=== PATIENT | female | born 1965 | race Caucasian/White ===

== ENCOUNTER 2021-09-12 13:14 | Outpatient (CLI) | payer OTHER, SELFPAY ==
--- NOTE | 2021-09-12 13:23 | CT_ITS ---
WS: [id number] LDCT LUNG CANCER SCREENING HISTORY: HX OF TOBACCO USE TECHNIQUE: Axial imaging performed from the apices to 1 cm below the costophrenic angles. Coronal and sagittal reformats are submitted with axial MIP series. All CT scans at [facility] use at least one of these dose optimization techniques: automated exposure control; mA and/or kV adjustment per patient size (includes targeted exams where dose is matched to clinical indication); or iterativ e reconstruction. DLP: 54.19 mGy.cm DIvol: 1.58 mGy COMPARISON: None available. Diagnostic quality: Satisfactory Lung Nodules: Biapical pleural thickening is nearly symmetric. Slightly greater nodularity at the RIG HT apex. Largest nodule measures 14 mm along the posterior lateral upper lobe. Benign granuloma LEFT upper lobe. Additional subsolid 6 mm nodule anterior RIGHT upper lobe, image 89 of series 3. Lungs: Hyperexpanded lungs. Heart: Normal size. No effusion. Other findings: Mild atherosclerosis aorta. Normal size pulmonary artery. No adenopathy identified on this unenhanced study. Bilateral breast implants. Small hiatal hernia. Mild increase in thoracic kyp hosis. CT/CT lung screening [id number] IMPRESSION: LUNG-RADS: 4A-Probably Suspicious FOLLOW UP: 3 Month LDCT OTHER FINDINGS (S MODIFIER): None. CT follow-up recommended to reevaluate the biapical pleural thickening and nodu larity.
== END 2021-09-12 13:15 | disposition home or self-care (01) ==
LOC: RAD 13:21
PROVIDERS: PCP Nurse Practitioner Family; Visit Provider Nurse Practitioner Family
DX: Z12.2 Encounter for screening for malignant neoplasm of respiratory organs (principal); Z87.891 Personal history of nicotine dependence
CPT/HCPCS: 71271

== ENCOUNTER 2021-12-11 10:09 | Day surgery (SDC) | payer OTHER, SELFPAY ==
[2021-12-11 07:03] VITALS: BMI 24.7
--- NOTE | 2021-12-11 11:15 | P.ANESASSM_ITS ---
Pre-Anesthetic Assessment Height/Weight: Height 1.68 m Weight 69.4 kg Preop Diagnosis: Abdominal pain Operation Date: 12/11/21 11:30 Proposed Procedures p EGD 96670/r10.12(Not Applicable) - Yury South MD Familial anesthetic complications: None Was Beta Colten taken within 24 hours: N/A Was Clonidine taken within 24 hours: N/A Last intake: Intake Last Liquid Date 12/10/21 Last Liquid Time 20:00 Last Solid Date 12/10/21 Last Solid Time 20:00 Social No alcohol and No tobacco Exam alert, oriented x 3, clear to auscultation bilaterally and regular rate & rhythm Airway Submandibular: within normal limits Cervical ROM: within normal limits Mallampati: Class II Dentition: full Pulmonary None reported CV/HEM None reported METS > 4 None reported Hepatic None reported GI Abdominal pain with reflux of fluid Prior dx of hiatal hernia Reports difficulty with swallowing with microaspiration occassionally Denies bolus sensation Denies hx of food bolus Metabolic None reported Musc/skel None reported Neuropsych Neuropathy (Hx are carpal tunnel) Anesthetic Plan ASA status: 2 Anesthesia: Anesthesia Evaluation and General Other: I discussed with the patient risks, goals, and benefits of MAC and general anesthesia. We discussed spectrum of MAC anesthesia including conversion to general as well as possibility of recall of intraoperative stimuli including discomfort/pain. Patient agrees to proceed with MAC. Risk of > 500 ml blood loss (7ml/kg in children): No Medications/Allergies Home Medications Medication Instructions Recorded Confirmed Last Taken Type pantoprazole 40 mg tablet,delayed 40 mg PO BID 60 Days #120 tab 12/09/21 12/11/21 12/10/21 Rx release (Protonix) Allergies Allergy/AdvReac Type Severity Reaction Status Date / Time latex Allergy ALGY-Rash Verified 12/09/21 12:52 [facility] Anesthesia Surgical History History of bilateral carpal tunnel release History of breast augmentation History of History of colonoscopy History of eye surgery S/P appendectomy Social History Smoking and tobacco status: never smoked Data Anesthesia Cardiac Studies: Holter Monitor 07/31/21
[2021-12-11] MEDS: sodium chloride 0.9% 1,000 ML 30 ML IV (11:20)
[2021-12-11 11:21] VITALS: BP 116/75; PULSE 68; RESP 17; TEMP 36.3; O2SAT 99
--- NOTE | 2021-12-11 11:55 | W.PM.OPSFHP ---
Same Day Surgery H&P Indication for Procedure/HPI DATE OF PROCEDURE: December 11, 2021 CHIEF COMPLAINT/INDICATIONFOR SURGICAL PROCEDURE: Left upper quadrant pain PREOP DIAGNOSIS: Abdominal pain PLANNED PROCEDURE: Operation Date: 12/11/21 11:30 Proposed Procedures p EGD 41778/r10.12(Not Applicable) - Yury South MD Medications/Allergies* Allergies/Adverse Reactions Allergy/AdvReac Type Severity Reaction Status Date / Time latex Allergy ALGY-Rash Verified 12/09/21 12:52 Current Medications: Generic Name Dose Route Start Last Admin Trade Name Freq PRN Reason Stop Dose Admin Sodium Chloride 1,000 mls @ 30 mls/hr 12/11/21 11:18 12/11/21 11:20 Sodium Chloride 0.9% IV 12/12/21 11:17 30 mls/hr .Q24H SWEETIE Administration Pertinent History/Comorbid Conditions* Surgical History (Updated 12/09/21 @ 13:04 by Yury South MD) History of bilateral carpal tunnel release History of breast augmentation History of History of colonoscopy History of eye surgery S/P appendectomy Social History Smoking and tobacco status: never smoked Pertinent Exam Findings alert, oriented x 3 and regular rate & rhythm Recommendations Surgery/Procedure today Coding Level of Care Code Acute 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
[2021-12-11 12:00] VITALS: BP 112/67; PULSE 94; RESP 12; TEMP 36.1; O2SAT 95
--- NOTE | 2021-12-11 12:02 | ANE.PACU2 ---
Documented by User: Ricardo Rbuin CRNA 12/11/21 12:03 Inpatient post-anesthesia follow up: Airway intact: Yes Vital signs: Temperature 97 F Pulse Rate 94 Respiratory Rate 12 Blood Pressure 112/67 Pulse Oximetry 95 Oxygen Delivery Me thod Room Air Oxygen Flow Rate Fraction of Inspir ed Oxygen Hydration adequate: Yes Nausea and vomiting: No Pain level: 1 Mental status: Baseline
[2021-12-11 12:12] VITALS: BP 131/78; PULSE 72; RESP 16; O2SAT 98
== END 2021-12-11 12:20 | disposition home or self-care (01) ==
PROVIDERS: PCP Nurse Practitioner Family; Visit Provider Surgery
PROC: 0DJ08ZZ Inspection of Upper Intestinal Tract, Via Natural or Artificial Opening Endoscopic (ICD-10-PCS; CPT 43235; principal; 2021-12-11 11:30)
DX: R10.12 Left upper quadrant pain (principal); K44.9 Diaphragmatic hernia without obstruction or gangrene; K29.70 Gastritis, unspecified, without bleeding
CPT/HCPCS: 43239; 88305; J2704; J7030

== ENCOUNTER 2022-10-10 08:21 | Outpatient (CLI) | payer OTHER, SELFPAY ==
--- NOTE | 2022-10-10 08:42 | CT_ITS ---
WS: [id number] LDCT LUNG CANCER SCREENING HISTORY: HX OF TOBACCO TECHNIQUE: Axial imaging performed from the apices to 1 cm below the costophrenic angles. Coronal and sagittal reformats are submitted with axial MIP series. All CT scans at [facility] use at least one of these dose optimization techniques: automated exposure control; mA and/or kV adjustment per patient size (includes targeted exams where dose is matched to clinical indication); or iterativ e reconstruction. DLP: 85.58 mGy.cm DIvol: Mean CTDIvol: 1.60 (mGy) COMPARISON: 09/12/2021 Diagnostic quality: Satisfactory Lung Nodules: Previously described pleural thickening and fibrosis and nodularity at the lung apices is unchanged. No progression. No new pulmonary nodule or mass. No endobronchial lesions. Lungs: Chronic emphysema. Heart: Normal size heart. No pericardial effusion. Minimal coronary artery calcified plaque. Other findings: Bilateral breast implants. Mild atherosclerosis thoracic aorta, no aneurysm. Normal s ize pulmonary artery. No adrenal mass. CT/CT lung screening [id number] IMPRESSION: LUNG-RADS: 2-Benign Appearance or Behavior FOLLOW UP: 12 Month: Continue annual screening with LDCT OTHER FINDINGS (S MODIFIER): None.
== END 2022-10-10 08:22 | disposition home or self-care (01) ==
LOC: RAD 08:23
PROVIDERS: PCP Nurse Practitioner Family; Visit Provider Nurse Practitioner Family
DX: Z12.2 Encounter for screening for malignant neoplasm of respiratory organs (principal); Z87.891 Personal history of nicotine dependence
CPT/HCPCS: 71271

== ENCOUNTER 2022-12-23 06:58 | Outpatient (CLI) | payer OTHER, SELFPAY ==
[2022-12-23 07:25] VITALS: PULSE 73; RESP 18; O2SAT 95
[2022-12-23 07:30] VITALS: PULSE 74
[2022-12-23 07:53] VITALS: BP 136/88; BP 146/93
== END 2022-12-23 06:59 | disposition home or self-care (01) ==
PROVIDERS: PCP Family Medicine; Visit Provider Family Medicine
DX: J44.9 Chronic obstructive pulmonary disease, unspecified (principal)
CPT/HCPCS: 94060; 94618; 94726; 94729

== ENCOUNTER → 2023-02-02 12:39 | Outpatient (BNVA) | payer OTHER, SELFPAY | PROVIDERS: PCP Family Medicine; Visit Provider Internal Medicine Pulmonary Disease | DX: J44.9 Chronic obstructive pulmonary disease, unspecified (principal); R40.0 Somnolence | CPT/HCPCS: 36415; 80053; 82785; 85025; 86003 ==

== ENCOUNTER 2023-02-11 13:30 | Outpatient (CLI) | payer OTHER, SELFPAY | END 2023-02-11 13:31 | disposition home or self-care (01) | LOC: SLEEP 02-12 09:31 | PROVIDERS: PCP Family Medicine; Visit Provider Internal Medicine Pulmonary Disease | DX: R40.0 Somnolence (principal) | CPT/HCPCS: 94762 ==

== ENCOUNTER → 2023-03-06 14:35 | Outpatient (BNVA) | payer OTHER, SELFPAY | PROVIDERS: PCP Family Medicine; Visit Provider Family Medicine | DX: R14.0 Abdominal distension (gaseous) (principal) | CPT/HCPCS: 86003; 86008 ==

== ENCOUNTER 2023-03-12 16:00 | Outpatient (CLI) | payer OTHER, SELFPAY | END 2023-03-12 16:01 | disposition home or self-care (01) | LOC: SLEEP 03-16 12:51 | PROVIDERS: PCP Family Medicine; Visit Provider Internal Medicine Pulmonary Disease | DX: G47.33 Obstructive sleep apnea (adult) (pediatric) (principal); R06.09 Other forms of dyspnea; J44.9 Chronic obstructive pulmonary disease, unspecified; Z87.891 Personal history of nicotine dependence | CPT/HCPCS: G0399 ==

== ENCOUNTER 2023-07-28 08:25 | Oncology outpatient (recurring) (ONCR) | payer OTHER, SELFPAY ==
[2023-07-28 10:15] VITALS: BP 125/76; PULSE 77; RESP 18; TEMP 36.6; O2SAT 96
[2023-07-28] MEDS: Benralizumab *no charge* 30 mg/ml syringe SUBCUT (16:56)
--- NOTE | 2023-07-28 16:59 | NUR.SHIFT ---
Patient came in for the instructions and injecting of the first Benralizumab . the injection and medication was instructed of the technique of the drug,frequency,site and how to dispose of needles. Instructions to call [facility] pharmacy for the next refills. She tolerated it well with no signs or symptoms post injections//mm
== END 2023-08-23 23:59 | disposition home or self-care (01) ==
LOC: ONCMED 08:25
PROVIDERS: PCP Family Medicine; Visit Provider Internal Medicine Pulmonary Disease
DX: J45.909 Unspecified asthma, uncomplicated (principal)
CPT/HCPCS: 96372

== ENCOUNTER 2023-10-23 07:48 | Outpatient (CLI) | payer OTHER, SELFPAY ==
--- NOTE | 2023-10-23 08:00 | CT_ITS ---
WS: [id number] LDCT LUNG CANCER SCREENING HISTORY: follow up TECHNIQUE: Axial imaging performed from the apices to 1 cm below the costophrenic angles. Coronal and sagittal reformats are submitted with axial MIP series. All CT scans at [facility] use at least one of these dose optimization techniques: automated exposure control; mA and/or kV adjustment per patient size (includes targeted exams where dose is matched to clinical indication); or iterativ e reconstruction. DLP: 60.17 mGy.cm DIvol: Mean CTDIvol: 0.90 (mGy) COMPARISON: 10/10/2022 Diagnostic quality: Satisfactory Lungs: Biapical pleural scarring and fibrosis. No suspicious mass or nodule. Moderate chronic emphyse ma. No endobronchial lesions. Heart: Normal size heart with no pericardial effusion.. Other findings: No mediastinal or hilar adenopathy. Minimal atherosclerosis aorta. Bilateral breast i mplants. No adrenal mass. IMPRESSION: CT/CT lung screening [id number] LUNG-RADS: 2-Benign Appearance or Behavior FOLLOW UP: 12 Month: Continue annual screening with LDCT OTHER FINDINGS (S MODIFIER): None.
== END 2023-10-23 07:49 | disposition home or self-care (01) ==
LOC: RAD 07:48
PROVIDERS: PCP Nurse Practitioner Family; Visit Provider Internal Medicine Pulmonary Disease
DX: Z12.2 Encounter for screening for malignant neoplasm of respiratory organs (principal); J43.9 Emphysema, unspecified; J84.10 Pulmonary fibrosis, unspecified; Z87.891 Personal history of nicotine dependence
CPT/HCPCS: 71271

== ENCOUNTER → 2024-01-28 09:36 | Outpatient (BNVA) | payer OTHER, SELFPAY | PROVIDERS: PCP Nurse Practitioner Family; Visit Provider Internal Medicine Pulmonary Disease | DX: R21 Rash and other nonspecific skin eruption (principal); J44.9 Chronic obstructive pulmonary disease, unspecified; Z87.891 Personal history of nicotine dependence; G47.33 Obstructive sleep apnea (adult) (pediatric) | CPT/HCPCS: 36415; 86617 ==

== ENCOUNTER 2025-01-04 09:43 | Outpatient (CLI) | payer OTHER, SELFPAY ==
--- NOTE | 2025-01-04 09:48 | CT_ITS ---
WS: [id number] LDCT LUNG CANCER SCREENING HISTORY: HX OF TOBACCO USE TECHNIQUE: Axial imaging performed from the apices to 1 cm below the costophrenic angles. Coronal and sagittal reformats are submitted with axial MIP series. All CT scans at [facility] use at least one of these dose optimization techniques: automated exposure control; mA and/or kV adjustment per patient size (includes targeted exams where dose is matched to clinical indication); or iterative reconstruction. DLP: 53.81 mGy.cm DIvol: Mean CTDIvol: 1.00 (mGy) COMPARISON: 10/23/2023 Diagnostic quality: Satisfactory Lungs: Moderate biapical pleural thickening and fibrosis and subpleural opacifications reidentified with no change. Anterior RIGHT upper lobe pleural tag. No pulmonary mass or nodule. No endobronchial lesions. Heart: Normal size heart with no pericardial effusion.. Other findings: Bilateral breast implants. Mild atherosclerosis aorta. Normal size pulmonary artery. Small hiatal hernia. No adrenal mass. Mild increase in thoracic kyphosis. CT/CT lung screening [id number] IMPRESSION: LUNG-RADS: 2-Benign Appearance or Behavior FOLLOW UP: 12 Month: Continue annual screening with LDCT OTHER FINDINGS (S MODIFIER): None.
== END 2025-01-04 09:44 | disposition home or self-care (01) ==
PROVIDERS: PCP Nurse Practitioner Family; Visit Provider Nurse Practitioner Family
DX: Z12.2 Encounter for screening for malignant neoplasm of respiratory organs (principal); Z87.891 Personal history of nicotine dependence; J92.9 Pleural plaque without asbestos; J84.10 Pulmonary fibrosis, unspecified; R91.8 Other nonspecific abnormal finding of lung field; J94.8 Other specified pleural conditions; Z98.82 Breast implant status; I70.0 Atherosclerosis of aorta; K44.9 Diaphragmatic hernia without obstruction or gangrene; M40.294 Other kyphosis, thoracic region
CPT/HCPCS: 71271